=== PATIENT | male | born 1975 | race Caucasian/White ===

== ENCOUNTER 2022-01-17 11:41 | Emergency (ER) | payer OTHER ==
[~2022-01-17] VITALS: Ht 177.8 cm; Wt 113.2 kg
[2022-01-17 12:38] LABS: ANION GAP 8 mmol/L (8-16); CALCIUM, TOTAL 9.4 mg/dL (8.8-10.5); CARBON DIOXIDE 27 mmol/L (22-29); CHLORIDE 102 mmol/L (98-107); CREATININE 0.81 mg/dL (0.60-1.30); GLUCOSE,RANDOM 109 mg/dL (70-110); POTASSIUM 3.9 mmol/L (3.5-5.1); SODIUM SERUM 137 mmol/L (136-145); UREA NITROGEN, BLOOD 10 mg/dL (7-18)
[2022-01-17 12:39] LABS: GLOMERULAR FILTR. RATE CALC > 60 mL/min (>60)
[2022-01-17 13:03] LABS: BASOPHILS % (AUTO) 0.3 % (0.0-2.0); EOSINOPHILS % (AUTO) 0.4 % (1.0-6.0); HEMATOCRIT 44.9 % (41-53); HEMOGLOBIN 15.4 g/dL (13.5-17.5); LYMPHOCYTES # (AUTO) 1.8 K/uL (1.0-4.8); LYMPHOCYTES % (AUTO) 17.3 % (22.0-44.0); MEAN CORPUSCULAR HEMOGLOBIN 31.3 pg (26.0-34.0); MEAN CORPUSCULAR HGB CONC 34.2 G/dL (31.0-37.0); MEAN CORPUSCULAR VOLUME 92 fL (80-100); MONOCYTES # (AUTO) 0.7 K/uL (0.1-1.0); MONOCYTES % (AUTO) 6.7 % (2.0-9.0); NEUTROPHILS % (AUTO) 75.3 % (40.0-70.0); PLATELET COUNT (AUTO) 260 K/uL (150-450); RED BLOOD CELL COUNT(AUTO) 4.91 MIL/uL (4.50-5.90); RED CELL DISTRIBUTION WIDTH 13.1 % (11.5-14.5)
[2022-01-17 13:44] VITALS: BP 110/72
== END 2022-01-17 14:34 | disposition home or self-care (01) ==
LOC: EMS 11:48
DX: F41.0 Panic disorder [episodic paroxysmal anxiety] (principal); F41.9 Anxiety disorder, unspecified; Z86.16 Personal history of COVID-19
CPT/HCPCS: 80048; 85025; 99283